=== PATIENT | male | born 1995 | race African-American/Black ===

== ENCOUNTER 2024-07-04 18:25 | Emergency (ER) | payer OTHER ==
[~2024-07-04] VITALS: Ht 193 cm; Wt 147.9 kg
[2024-07-04] MEDS ORDERED: ALLERGY MEDICAT25 MG PO (18:56)
[2024-07-04] MEDS ORDERED: CLONIDINE HCL0.2 MG PO (18:56)
[2024-07-04] MEDS ORDERED: ACID CONTROLLER20 MG PO (18:57)
[2024-07-04] MEDS ORDERED: VITAMIN D325 MC2 PO (18:58)
[2024-07-04] MEDS ORDERED: SUMAtriptan succinate 6 MG/0.5 ML VIAL SUB-Q ONE (21:00)
[2024-07-04] MEDS ORDERED: ACETAMINOPHEN 500 MG TAB PO ONE (21:00)
[2024-07-04] MEDS ORDERED: IMITREX50 MG PO (21:36)
[2024-07-04 21:48] VITALS: BP 132/101
== END 2024-07-04 21:51 | disposition other institution, planned readmission (95) ==
LOC: ED 18:25
DX: G43.909 Migraine, unspecified, not intractable, without status migrainosus (principal); R04.0 Epistaxis; I10 Essential (primary) hypertension; Z79.899 Other long term (current) drug therapy
CPT/HCPCS: 70450; 70486; 96372; 99283-25; A9270; J3030